=== PATIENT | male | born 2005 | race Caucasian/White ===

== ENCOUNTER 2024-04-11 21:15 | Emergency (ER) | payer OTHER, SELFPAY ==
[2024-04-11 21:18] VITALS: BP 137/69; PULSE 93; RESP 16; TEMP 37.3; O2SAT 98; BMI 23.1
--- NOTE | 2024-04-11 22:00 | ED.WOUNDLAC ---
HPI - Wound/Laceration General Time Seen by Provider: 22:00 Date Seen: 04/11/24 Chief Complaint: Laceration/Wound Stated Complaint: head lac Time Seen by Provider: 04/11/24 21:41 Source: patient, family and RN notes reviewed Mode of arrival: ambulatory Limitations: no limitations History of Present Illness HPI narrative: Manfred is a very pleasant 18-year-old male with history of tetanus 2017 who comes to the emergency room for evaluation regarding head laceration. Appears that he was in the shower and hit the back of his head after tripping as he was trying to exit on the corner of the counter. He did not experience any loss of consciousness, neck pain, visual changes nausea or vomiting. He came to the emergency room for evaluation. He is accompanied by his sister who works as a clinical nursing coordinator in the our [facility]. He is otherwise a healthy person. Related Data Allergies Allergy/AdvReac Type Severity Reaction Status Date / Time No Known Drug Allergies Allergy Verified 04/11/24 21:22 Review of Systems Status of ROS: Reports: 6 or more systems reviewed and unremarkable except as noted in History and below Exam Narrative: Exam Narrative: Patient is alert and oriented no acute distress. Patient has a small v-shaped laceration to the posterior aspect of the parietal scalp in the midline. This is measuring in total approximately 1.8 cm. Dermis and epidermis compromised. No foreign bodies are noted. Wound is slowly oozing of blood at this time. Patient has good range of motion of his neck there is no hesitation to movement. No midline cervical tenderness. EOM is full pupils are equal round. Face symmetrical. Speech is normal. No respiratory distress. Moving all extremities. Const: Vital Signs, click to edit/add: Vital Signs - 24 hr 04/11/24 21:18 Temperature 99.1 F Pulse Rate [Left P ulse Oximeter] 93 Respiratory Rate 16 Blood Pressure [Ri ght Upper Arm] 137/69 Pulse Oximetry 98 Oxygen Delivery Me thod Room Air Documenting provider has reviewed patient's vital signs: yes Course Course ED Course: At this time patient has sustained a head laceration. There has been no evidence of underlying injury beyond this as he did that x-rays loss of consciousness, he has no neck pain, no confusion, no vomiting. Discussed with patient use of topical let as he will need dameon. Alternatively he will likely only need 2 dameon and therefore if he would like we can do it without let and avoid waiting. He elects to go ahead without anesthesia. Wound has already been cleansed by nursing. Vital Signs Vital signs: Initial Vital Signs Temperature 99.1 F 04/11/24 21:18 Temperature Source Temporal Artery Scan 04/11/24 21:18 Pulse Rate 93 04/11/24 21:18 Pulse Rhythm Regular 04/11/24 21:18 Respiratory Rate 16 04/11/24 21:18 Blood Pressure 137/69 04/11/24 21:18 Blood Pressure Mean 91 04/11/24 21:18 Blood Pressure Position Sitting 04/11/24 21:18 Pulse Oximetry 98 04/11/24 21:18 Oxygen Delivery Method Room Air 04/11/24 21:18 Vital Signs Temperature 99.1 F 04/11/24 21:18 Pulse Rate 93 04/11/24 21:18 Respiratory Rate 16 04/11/24 21:18 Blood Pressure 137/69 04/11/24 21:18 Pulse Oximetry 98 04/11/24 21:18 Oxygen Delivery Method Room Air 04/11/24 21:18 Temperature 99.1 F 04/11/24 21:18 Pulse Rate 93 04/11/24 21:18 Respiratory Rate 16 04/11/24 21:18 Blood Pressure 137/69 04/11/24 21:18 Pulse Oximetry 98 04/11/24 21:18 Oxygen Delivery Method Room Air 04/11/24 21:18 MDM - Wound/Laceration MDM Narrative Medical decision making narrative: 1. Head laceration-2 dameon were placed in interrupted fashion with good wound closure. Spoke with Manfred and his sister about keeping the wound clean. He may shower but avoid swimming or docking his head in a pool [place] or stream. Dameon should be removed in 10 days time. Seek medical attention for signs of infection. 2. Disposition-home with sister at this time. I see no evidence of a closed head injury. I do feel that Manfred is safe to go home by himself 1 question by his sister. Return as needed. Discharge Plan Discharge Clinical Impression: Laceration Patient Disposition: Home, Self-Care Condition: Improved Additional Instructions: Recommend staple removal in 10 days. Can be done at the clinic or an urgent care. Monitor for infection-seek medical attention for fever, discharge from the wound. You may shower but recommend against swimming or putting her head under water in a pool/[place] until dameon are removed. Ibuprofen or Tylenol may be used as needed. Seek medical attention for vomiting, visual changes, difficulty with balance and as needed. Stand Alone Forms: untapt Info Instructions
== END 2024-04-11 22:19 | disposition home or self-care (01) ==
LOC: ED 22:17
PROVIDERS: Emergency Provider Family Medicine
DX: S01.91XA Laceration without foreign body of unspecified part of head, initial encounter (principal); W18.2XXA Fall in (into) shower or empty bathtub, initial encounter
CPT/HCPCS: 12001; 99283